=== PATIENT | female | born 1955 ===

== ENCOUNTER 2019-02-05 08:24 | Outpatient (CLI) | payer OTHER | END 2019-02-05 08:28 | disposition home or self-care (01) | LOC: RX STUDY 08:24 | DX: K59.09 Other constipation (principal); K62.3 Rectal prolapse; K57.30 Diverticulosis of large intestine without perforation or abscess without bleeding ==

== ENCOUNTER 2019-02-13 10:15 | Outpatient (CLI) | payer OTHER | END 2019-02-13 14:49 | disposition home or self-care (01) | LOC: TOM 10:15 | DX: K59.09 Other constipation (principal); K62.3 Rectal prolapse; K57.30 Diverticulosis of large intestine without perforation or abscess without bleeding ==